=== PATIENT | female | born 1995 | race Caucasian/White ===

== ENCOUNTER 2017-09-10 08:41 | Emergency (ER) | payer OTHER, SELFPAY ==
[2017-09-10 08:43] VITALS: BP 127/72; PULSE 122; RESP 20; TEMP 38.3; O2SAT 96; BMI 42.0
--- NOTE | 2017-09-10 08:56 | ED.DCSUM_ITS ---
- ER Visit Summary Date of Service: 09/10/17 Chief Complaint: Fever, chills, sweats and nonproductive cough History of Present Illness: The patient is a 22 F presents with flulike symptoms started yesterday. She complains of headache without photophobia sips of her neck. She does complain of runny nose, congestion and sore throat. She denies ear pain. She does complain of cough which is nonproductive. She denies any chest discomfort. She denies GI symptoms. She denies urologic symptoms. Denies skin lesions or rash. She does complain of aching. Physical Examination: Vital signs remarkable blood pressure 127 or 72, heart rate of 122, respiratory 20 and temperature 100.9. Pulse ox 96 on room air and is normal. HEENT exam is marked for boggy nasal mucosa otherwise negative. Heart is regular without murmur, gallop or rub. S1 and S2 are normal. Lungs are clear to auscultation with good movement of air bilaterally. She is alert oriented ?3 with a nonfocal neurologic exam no rash noted. Test Results: None Emergency Department Course and Treatment: She was told she has influenza. She was informed there is a medication and that the medication would shorten her illness from 7.1 day 6.3 days. She was told since she has insurance that the cost would be between 75 and $100. She declined prescription. Treatment Plan: Symptomatic and appropriate home-going instructions Disposition: Discharged to home with work excuse Impression: Influenza This note was generated with [employer] dictation software. It may contain incorrect words, spelling, and punctuation that were not noted in review of the chart prior to signing ED Disposition - Plan for ED Patient: Disposition: Home or Assisted Living Chief Complaint: General Illness Instructions: ED Flu Referrals: NOT,DEFINED [Primary Care Provider] - Fast,Niecy, DO [NON-STAFF] - 10-14 Days if not better
== END 2017-09-10 09:08 | disposition home or self-care (01) ==
LOC: ED 09:03
PROVIDERS: Emergency Provider Emergency Medicine
DX: J11.1 Influenza due to unidentified influenza virus with other respiratory manifestations (principal); E66.9 Obesity, unspecified; Z72.0 Tobacco use
CPT/HCPCS: 99282

== ENCOUNTER 2017-11-29 20:54 | Emergency (ER) | payer OTHER, SELFPAY ==
[2017-11-29 20:56] VITALS: BP 158/76; PULSE 98; RESP 17; TEMP 36.8; O2SAT 98; BMI 41.3
[2017-11-29 21:26] LABS: Bacteria 0 SEEN /hpf (None Seen); Mucous, Urine 0 SEEN /hpf (<or=2+); Squamous Epithelial Cells - UA 0 SEEN /hpf (5-10)
[2017-11-29 21:31] LABS: Color, Urine Red (Yellow); Glucose, Dipstick Normal (Normal); Ketone-Dipstick Negative (Negative); Leukocyte Esterase-Dipstick 100 /ul (Negative); Nitrite-Dipstick Negative (Negative); Occult Blood-Urine 250 /ul (Negative); Protein-Dipstick 30 mg/dl (Negative); Specific Gravity, Urine 1.015 (1.002-1.030); Urine Bilirubin Dipstick Negative (Negative); Urine Clarity Cloudy (Clear); Urine Urobilinogen Normal (Normal)
[2017-11-29 21:55] LABS: Red Blood Cells-Urine > 100 SEEN /hpf (0-5); White Blood Cells 0-5 SEEN /hpf (0-5)
--- NOTE | 2017-11-29 22:13 | ED.VISSUMM ---
- ER Visit Summary Date of Service: 11/29/17 Chief Complaint: [] Vaginal bleeding for a few days History of Present Illness: The patient is a 22 F [] she reports is a few days late for her menstrual cycle she has had vaginal bleeding she was unable to work so she came to the emergency department. She indicates she has no history of being she took a test at home was negative, she has no history of any type of [employer]IM[employer] pathologic states although she does report when she was younger irregular periods and was on control pills for a while. She has no other past history no other complaints she had intercourse about 2 weeks ago Physical Examination: [] no Distress her vital signs are normal head neck chest unremarkable the abdomen is soft nontender upper lower extremities and back unremarkable clinically she looks well Test Results: [] Emergency Department Course and Treatment: [] States very directly that she did not go to work because of the vaginal bleeding and she wants a work excuse We have obtained a UA and urine hCG clinically she looks well I explained to repeat a pelvic exam that was deferred HCG is negative at this time she is treated with IM Toradol Naprosyn for pain 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 It may contain incorrect words, spelling, and punctuation that were not noted in review of the chart prior to signing ED Disposition - Plan for ED Patient: Chief Complaint: Vag Bleeding Referrals: Care Physician,No Primary [Primary Care Provider] -
[2017-11-29 22:44] LABS: Internal QC Validated? YES +Cl - CLEAR BKGD; Pregnancy, Urine Negative Negative
--- NOTE | 2017-11-29 23:14 | ED.DEP ---
ED Disposition - Plan for ED Patient: Chief Complaint: Vag Bleeding Instructions: ED Bleed Irregular Vaginal Prescriptions: Naproxen [Naprosyn] 500 mg PO BID PRN #20 tab Referrals: Care Physician,No Primary [Primary Care Provider] - Isaac Ndiaye [STAFF PHYSICIAN] -
[2017-11-29] MEDS: Ketorolac 60 MG/2 ML Vial IM (23:38)
[2017-11-29 23:41] VITALS: BP 124/73; PULSE 75; RESP 16; O2SAT 98
== END 2017-11-29 23:59 | disposition home or self-care (01) ==
LOC: ED 22:33
PROVIDERS: Emergency Provider Emergency Medicine
DX: N93.9 Abnormal uterine and vaginal bleeding, unspecified (principal); Z72.0 Tobacco use
CPT/HCPCS: 81001; 81025; 96372; 99283